=== PATIENT | male | born 1950 | race Caucasian/White ===

== ENCOUNTER → 2017-09-18 | Outpatient (CLI) | payer BC | LOC: M RAD 07:38 | DX: I70.213 Atherosclerosis of native arteries of extremities with intermittent claudication, bilateral legs (principal) | CPT/HCPCS: 93925 ==

== ENCOUNTER → 2017-10-03 | Outpatient (REF) | payer BC | LOC: M LABDRAW1 11:01 | DX: Z51.81 Encounter for therapeutic drug level monitoring (principal); Z79.891 Long term (current) use of opiate analgesic | CPT/HCPCS: 80307 ==

== ENCOUNTER → 2017-10-26 | Outpatient (CLI) | payer BC | LOC: M PLARAD 09:43 | DX: M51.36 Other intervertebral disc degeneration, lumbar region (principal) | CPT/HCPCS: 72148 ==

== ENCOUNTER → 2018-03-01 | Outpatient (CLI) | payer BC, MEDICARE ==
[~2018-03-01] MED LIST: PROHANCE 279.3MG/ML 15ML VIAL (A9576) As Ordered
== END ==
LOC: M RAD 18:10
DX: M47.26 Other spondylosis with radiculopathy, lumbar region (principal)
CPT/HCPCS: A9576

== ENCOUNTER 2018-04-04 10:05 | Emergency (ER) | payer BC ==
[2018-04-04] MEDS: METOPROLOL 5 MG/5 ML VIAL IV ×3 (11:12→11:28)
[2018-04-04 11:14] LABS: BASO % 0.4 % (0.0-1.0); EOS # 0.1 10^3/uL (0.0-0.50); EOS % 0.9 % (0.0-3.0); HEMATOCRIT 39.1 % (42.0-52.0); IMMATURE GRANULOCYTE % 0.3 % (0-3.0); LYMPH # 1.2 10^3/uL (1.5-4.5); LYMPH % 17.5 % (24.0-44.0); MEAN CORPUSCULAR HEMOGLOBIN 31.5 pg (27.0-33.0); MEAN CORPUSCULAR HGB CONC 33.2 g/dl (32.0-36.5); MEAN CORPUSCULAR VOLUME 94.7 fl (80.0-96.0); MONO # 0.8 10^3/uL (0.0-0.8); MONO % 11.1 % (0.0-5.0); NEUTROPHILS # 4.9 10^3/uL (1.8-7.7); NEUTROPHILS % 69.8 % (36.0-66.0); PLATELET COUNT, AUTOMATED 210 10^3/uL (150-450); RED BLOOD COUNT 4.13 10^6/uL (4.30-6.10); RED CELL DISTRIBUTION WIDTH 14.1 % (11.5-14.5)
[2018-04-04 11:31] LABS: INR 1.15; PROTHROMBIN TIME 14.9 SECONDS (12.1-14.4)
[2018-04-04 12:03] LABS: CK-MB VALUE MASS 1.3 NG/ML (<3.6); NT-PRO BNP 489 PG/ML (<125); THYROID STIMULATING HORMONE 0.745 uIU/ML (0.358-3.740); TROPONIN I < 0.02 NG/ML (< 0.10)
[2018-04-04 12:09] LABS: ANION GAP 8 MEQ/L (8-16); BLOOD UREA NITROGEN 20 MG/DL (7-18); CARBON DIOXIDE LEVEL 26 MEQ/L (21-32); CHLORIDE LEVEL 110 MEQ/L (98-107); CREATININE FOR GFR 0.64 MG/DL (0.70-1.30); GLOMERULAR FILTRATION RATE > 60.0 (>49); GLUCOSE, FASTING 122 MG/DL (70-100); POTASSIUM SERUM 3.9 MEQ/L (3.5-5.1); SODIUM LEVEL 144 MEQ/L (136-145)
[2018-04-04 12:10] LABS: ALBUMIN 3.5 GM/DL (3.2-5.2); ALBUMIN/GLOBULIN RATIO 1.13 (1.00-1.93); ALKALINE PHOSPHATASE 75 U/L (45-117); ALT/SGPT 20 U/L (12-78); AST/SGOT 14 U/L (7-37); BILIRUBIN,DIRECT 0.2 MG/DL (0.0-0.2); BILIRUBIN,TOTAL 0.9 MG/DL (0.2-1.0); CALCIUM LEVEL 8.8 MG/DL (8.8-10.2); CPK CREATINE PHOSPHOKINASE 61 U/L (39-308); MAGNESIUM LEVEL 1.9 MG/DL (1.8-2.4); MB/CK RELATIVE INDEX 2.13 (< OR =4); TOTAL PROTEIN 6.6 GM/DL (6.4-8.2)
[2018-04-04 12:11] LABS: FREE T4 0.95 NG/DL (0.76-1.46)
[2018-04-04] MEDS: AMIODARONE HCL 150 MG in APPROPRIATE DILUENT 1 EA IV (12:22)
== END 2018-04-04 14:26 | disposition home or self-care (01) ==
LOC: M ED 10:05
DX: I48.91 Unspecified atrial fibrillation (principal)
CPT/HCPCS: 71045

== ENCOUNTER 2018-08-14 05:35 | Emergency (ER) | payer BC ==
[~2018-08-14] VITALS: Ht 170.2 cm; Wt 79.5 kg
[~2018-08-14 05:35] MED LIST changes: +/PANT40TA OR; +/WARF25TA OR; +ACET65TA OR; +AMLO10TA OR; +AMLO5TAB6; +APRESOLINE PO; +ASPI81TA83 OR; +ASPI81TA83 PO; +ATEN50TA2 PO; +ATOR80TA59 PO; +BENI20TA11 OR; +BENI20TA11 PO; +CALCTAB22 PO; +CARV12.5; +CATA0.2T OR; +CRES40TA PO; +DIGO0.126 OR; +DOC Q LACE PO; +ELIQ5TAB; +FOLI1TAB OR; +FOLI1TAB PO; +GABA-845; +HYDR200T3; +HYDR25TA6 PO; +LOPR50TA OR; +LOSA100T50; +MAALSUS OR; +METH2.5T PO; +METH2.5T48; +METOPROLOL PO; +MULTCAP PO; +NEXI40CA PO; +NITROSTAT PO; +OSCAL PO; +OXAZ30CA OR; +OXYC10TA97 OR; +OYSCO; +PERC7.5T8 OR; +PRADAXA; +PRED10TA2 PO; +PRED5TA PO; -PROHANCE 279.3MG/ML 15ML VIAL (A9576) As Ordered; +TYLETAB14 PO; +VITAMIN B COMPLE1 PO; +VITAMIN B COMPLEX WI OR; +VITAMIN D PO; +pradaxa
[2018-08-14 06:17] LABS: BASO % 0.5 % (0.0-1.0); EOS # 0.2 10^3/uL (0.0-0.50); EOS % 2.8 % (0.0-3.0); HEMATOCRIT 36.8 % (42.0-52.0); LYMPH # 1.6 10^3/uL (1.5-4.5); LYMPH % 28.8 % (24.0-44.0); MEAN CORPUSCULAR HEMOGLOBIN 30.9 pg (27.0-33.0); MEAN CORPUSCULAR HGB CONC 32.6 g/dl (32.0-36.5); MEAN CORPUSCULAR VOLUME 94.8 fl (80.0-96.0); MONO # 0.6 10^3/uL (0.0-0.8); MONO % 10.1 % (0.0-5.0); NEUTROPHILS # 3.2 10^3/uL (1.8-7.7); NEUTROPHILS % 57.4 % (36.0-66.0); PLATELET COUNT, AUTOMATED 303 10^3/uL (150-450); RED BLOOD COUNT 3.88 10^6/uL (4.30-6.10); WHITE BLOOD COUNT 5.7 10^3/uL (4.0-10.0)
[2018-08-14 06:41] LABS: BLOOD UREA NITROGEN 23 MG/DL (7-18); CALCIUM LEVEL 8.6 MG/DL (8.8-10.2); CARBON DIOXIDE LEVEL 22 MEQ/L (21-32); CHLORIDE LEVEL 108 MEQ/L (98-107); CPK CREATINE PHOSPHOKINASE 138 U/L (39-308); CREATININE FOR GFR 1.27 MG/DL (0.70-1.30); GLUCOSE, FASTING 102 MG/DL (70-100); MB/CK RELATIVE INDEX 1.01 (< OR =4); POTASSIUM SERUM 5.2 MEQ/L (3.5-5.1); SODIUM LEVEL 140 MEQ/L (136-145); TROPONIN I < 0.02 NG/ML (< 0.10)
[2018-08-14] MEDS ORDERED: amLODIPine 5 MG TAB PO ONE (07:45)
[2018-08-14] MEDS ORDERED: LOSARTAN 50 MG TAB PO ONE (07:45)
[2018-08-14] MEDS ORDERED: CARVedilol 12.5 MG TAB PO ONE (07:45)
[2018-08-14] MEDS ORDERED: ASPIRIN 81 MG CHEW TABLET PO ONE (07:45)
--- NOTE | 2018-08-14 07:59 | REP ---
Portable chest x-ray: Single view. History: Chest pain. Comparison study: April 04, 2018. Findings: EKG monitoring electrodes overlie the chest. The lungs are symmetrically aerated and clear. Pleural angles are sharp. Cardiomediastinal silhouette is unremarkable. No significant bony abnormality is seen. Impression: No active disease. Electronically Signed by Ashok Bundy MD 08/14/2018 07:50 A
[2018-08-14 08:09] VITALS: BP 127/78
[2018-08-14] MEDS ORDERED: ASPI81TA85 PO (08:22)
[2018-08-14 13:00] LABS: CPK CREATINE PHOSPHOKINASE 44 U/L (39-308); TROPONIN I < 0.02 NG/ML (< 0.10)
[2018-08-14 13:15] VITALS: BP 130/68
[2018-08-14] MEDS ORDERED: PEPC1TAB5 PO (13:16)
--- NOTE | 2018-08-14 20:17 | ECGEPIP ---
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
--- NOTE | 2018-08-14 20:21 | ECGEPIP ---
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
== END 2018-08-14 13:28 | disposition home or self-care (01) ==
LOC: M ED 05:35
DX: R07.89 Other chest pain (principal); M79.602 Pain in left arm; I48.91 Unspecified atrial fibrillation; I10 Essential (primary) hypertension; E78.5 Hyperlipidemia, unspecified; K21.9 Gastro-esophageal reflux disease without esophagitis; M35.3 Polymyalgia rheumatica; G47.30 Sleep apnea, unspecified; Z88.7 Allergy status to serum and vaccine; Z91.040 Latex allergy status; Z91.018 Allergy to other foods; Z79.899 Other long term (current) drug therapy; Z79.01 Long term (current) use of anticoagulants; Z79.82 Long term (current) use of aspirin

== ENCOUNTER → 2019-04-21 | Outpatient (CLI) | payer BC ==
[~2019-04-21] MED LIST changes: -/PANT40TA OR; -/WARF25TA OR; +ASPI81TA85 PO; +COUM1TAB18 OR; +PEPC1TAB5 PO; +PROT1TAB2 OR
== END ==
LOC: M LAB 07:07
PROVIDERS: ATTEND Physical Medicine & Rehabilitation
DX: Z01.818 Encounter for other preprocedural examination (principal)

== ENCOUNTER 2019-05-05 12:18 | Emergency (ER) | payer BC ==
[~2019-05-05] VITALS: Ht 170.2 cm; Wt 73.6 kg
[~2019-05-05 12:18] MED LIST changes: -AMLO5TAB6; +AMLO5TAB6 PO; -CARV12.5; +CARV12.5 PO; -ELIQ5TAB; +ELIQ5TAB PO; -LOSA100T50; +LOSA100T50 PO; -METH2.5T48; +METH2.5T48 PO
[2019-05-05] MEDS ORDERED: CLOP75TA2 PO (12:43)
[2019-05-05] MEDS ORDERED: VALA1TAB2 PO (12:43)
[2019-05-05] MEDS ORDERED: XIDRA (12:43)
[2019-05-05] MEDS ORDERED: DRON40TA PO (12:43)
[2019-05-05] MEDS ORDERED: PRED20TA PO (12:43)
[2019-05-05 14:13] LABS: BASO % 0.1 % (0.0-1.0); EOS # 0.1 10^3/uL (0.0-0.5); EOS % 0.9 % (0.0-3.0); HEMATOCRIT 35.1 % (42.0-52.0); HEMOGLOBIN 11.7 g/dl (13.5-17.5); LYMPH # 1.9 10^3/uL (1.5-5.0); LYMPH % 26.9 % (24.0-44.0); MEAN CORPUSCULAR HEMOGLOBIN 30.8 pg (27.0-33.0); MEAN CORPUSCULAR HGB CONC 33.3 g/dl (32.0-36.5); MEAN CORPUSCULAR VOLUME 92.4 fl (80.0-96.0); MONO # 0.5 10^3/uL (0.0-0.8); MONO % 7.7 % (0.0-5.0); NEUTROPHILS # 4.4 10^3/uL (1.5-8.5); PLATELET COUNT, AUTOMATED 224 10^3/uL (150-450); WHITE BLOOD COUNT 6.9 10^3/uL (4.0-10.0)
[2019-05-05 14:38] LABS: ALBUMIN 3.2 GM/DL (3.2-5.2); ALT/SGPT 17 U/L (12-78); BILIRUBIN,DIRECT 0.1 MG/DL (0.0-0.2); BILIRUBIN,TOTAL 0.7 MG/DL (0.2-1.0); BLOOD UREA NITROGEN 20 MG/DL (7-18); CALCIUM LEVEL 8.5 MG/DL (8.8-10.2); CARBON DIOXIDE LEVEL 26 MEQ/L (21-32); CHLORIDE LEVEL 107 MEQ/L (98-107); CREATININE FOR GFR 0.64 MG/DL (0.70-1.30); GLOMERULAR FILTRATION RATE > 60.0 (>49); GLUCOSE, FASTING 96 MG/DL (70-100); LIPASE 190 U/L (73-393); POTASSIUM SERUM 3.8 MEQ/L (3.5-5.1); SODIUM LEVEL 140 MEQ/L (136-145); TOTAL PROTEIN 6.2 GM/DL (6.4-8.2)
[2019-05-05] MEDS ORDERED: NS 1,000 ML IV SCH (14:58)
[2019-05-05] MEDS ORDERED: MORPHINE 4 MG/ML 1ML VIAL/SYRINGE (J2270) IV ONE ×2 (15:00→17:45)
[2019-05-05] MEDS: GASTROGRAFIN SOLUTION 30ML PO SCH ×2 (15:34→16:07)
[2019-05-05] MEDS ORDERED: ISOVUE-370 76% 100ML VIAL (Q9967) As Ordered ONE (17:23)
--- NOTE | 2019-05-05 18:16 | REP ---
SCROTAL ULTRASOUND: Real-time sonographic evaluation of the scrotum and contents are performed. Testicles are normal in size with no torsion. Right testicle measures 4.8 x 2.7 x 3.1 cm and left testicle 5.0 x 2.3 x 2.9 cm. There is a small complex cyst in the right testicle 3 mm in diameter. There is a cyst in the right epididymis 2 mm in diameter. Right inguinal hernia is present with mesenteric fat in the right inguinal canal. Multiple cysts are seen in the left epididymis. The largest 1 cm in maximum diameter. There are a few scattered tiny calcifications in the testicles. There are small bilateral hydroceles. IMPRESSION: No testicular torsion. Complex cyst right testicle measures 3 mm. There are small cysts in each epididymis and small hydroceles. Right inguinal hernia containing fat. Electronically Signed by Yonatan Larson MD 05/06/2019 10:04 A
--- NOTE | 2019-05-05 18:24 | REPVR ---
PROCEDURE INFORMATION: Exam: CT Abdomen and Pelvis With Contrast Exam date and time: 05/05/2019 5:28 PM Clinical history: 69 years old, male; Pain and condition or disease; Complications not specified; Other: Right groin hernia; Abdominal pain; Localized; Lower; Additional info: R groin hernia now bilat low abd pain TECHNIQUE: Imaging protocol: Computed tomography of the abdomen and pelvis with intravenous contrast. Oral contrast was administered. Radiation optimization: All CT scans at this facility use at least one of these dose optimization techniques: automated exposure control; mA and/or kV adjustment per patient size (includes targeted exams where dose is matched to clinical indication); or iterative reconstruction. Contrast material: ISOVUE 370; Contrast volume: 100 ml; Contrast route: IV; COMPARISON: CT ABD PELVIS WITH CONTRAST 05/30/2014 5:57 PM FINDINGS: Lungs: Mild consolidation in the left lower lobe. Mild left lower lobe bronchial wall thickening. Liver: Stable 3 mm right hepatic lobe hypodensity. This is too small to definitively characterize, but likely represents a cyst. Gallbladder and bile ducts: Normal. No calcified stones. No ductal dilation. Pancreas: Normal. No ductal dilation. Spleen: Calcified splenic granulomas. Adrenals: Normal. No mass. Kidneys and ureters: Duplication of the right renal artery. Stomach and bowel: No bowel obstruction. Appendix: No evidence of appendicitis. Intraperitoneal space: Unremarkable. No free air. No significant fluid collection. Vasculature: Moderate atherosclerotic changes. Incidental circumaortic left renal vein, congenital variant. Coronary artery calcifications. Lymph nodes: Unremarkable. No enlarged lymph nodes. Bladder: Unremarkable as visualized. Reproductive: Unremarkable as visualized. Bones/joints: Degenerative change of the spine. Mild left sacroiliac joint DJD. Mild bilateral hip joint DJD. Mild degenerative change of the pubic symphysis. Soft tissues: Small fat-containing indirect right inguinal hernia. IMPRESSION: 1. Mild left lower lobe bronchopneumonia. 2. Small fat-containing indirect right inguinal hernia. COMMENT: Consistent with the [employer]'s Incidental Findings Committee Report (J Am Missael Radiol 2010): Unless the patient's specific circumstances suggest otherwise, any liver lesion 0.5 cm or less, any cystic kidney lesion less than 1.0 cm, and/or any adrenal lesion 1.0 cm or less not otherwise characterized in this report as possessing suspicious or indeterminate imaging features is/are highly likely to be benign and do not require follow-up imaging or biopsy. Electronically signed by: Azalea Erickson On 05/05/2019 18:24:23 PM
[2019-05-05] MEDS ORDERED: AZIT-12 PO (19:29)
[2019-05-05] MEDS ORDERED: AZITHROMYCIN 250 MG TAB PO ONE (19:30)
[2019-05-05] MEDS ORDERED: ROBI1LIQ9 PO (19:30)
[2019-05-05] MEDS ORDERED: CARVedilol 12.5 MG TAB PO ONE (19:30)
[2019-05-05] MEDS ORDERED: ACETAMINOPHEN TAB 650MG DOSE (2X325MG) PO ONE (19:30)
[2019-05-05 19:31] VITALS: BP 158/73
[2019-05-05 19:40] VITALS: BP 158/73
--- NOTE | 2019-05-07 10:22 | ED PDOC ---
Post-Departure Follow-Up dr jorgensen faxed formal report of scrotal us for fu Akash Worley MD May 07, 2019 10:22
== END 2019-05-05 19:52 | disposition home or self-care (01) ==
LOC: M ED 12:18
DX: J18.0 Bronchopneumonia, unspecified organism (principal); K40.90 Unilateral inguinal hernia, without obstruction or gangrene, not specified as recurrent; N44.2 Benign cyst of testis; N43.3 Hydrocele, unspecified; N50.3 Cyst of epididymis; G47.30 Sleep apnea, unspecified; K21.9 Gastro-esophageal reflux disease without esophagitis; M54.89 Other dorsalgia; F41.9 Anxiety disorder, unspecified; Z88.7 Allergy status to serum and vaccine; Z91.040 Latex allergy status; Z91.018 Allergy to other foods; Z79.899 Other long term (current) drug therapy
CPT/HCPCS: 74177; 76870; 80048; 80076; 83690; 85025; 93041; 93976; 96374; 96376; 99285; J2270; Q9963; Q9967

== ENCOUNTER → 2020-01-05 | Outpatient (CLI) | payer BC ==
[~2020-01-05] MED LIST changes: +AUGM875T28 PO; +AZIT-12 PO; +CLOP75TA2 PO; +DRON40TA PO; +ENOX80IN3; +FOLI1TAB11 PO; +NORC1TAB7 PO; +PRED1TABL PO; +PRED20TA PO; +ROBI1LIQ9 PO; +VALA1TAB5 PO; +XIDRA
--- NOTE | 2020-01-05 10:44 | REP ---
Clinical: Right hip pain. Recent fall. Technique: Neutral and frog lateral views of the right hip. Findings: Generalized age-related changes are appreciated. No acute fracture or dislocation. Surrounding soft tissues grossly unremarkable. Peripheral vascular disease noted. Impression: Age-related degenerative changes. No acute fracture or dislocation. Electronically Signed by Bandar Echeverria MD 01/05/2020 10:35 A
== END ==
LOC: M WUC 10:16
PROVIDERS: ATTEND Physician Assistant
DX: M25.551 Pain in right hip (principal); M18.11 Unilateral primary osteoarthritis of first carpometacarpal joint, right hand

== ENCOUNTER → 2020-04-18 | Outpatient (CLI) | payer BC ==
[~2020-04-18] MED LIST changes: +AMLO1TAB24 PO; -AMLO5TAB6 PO; -ASPI81TA85 PO; +ASPI81TA86 PO
== END ==
LOC: M LABSMTC 09:22
PROVIDERS: ATTEND Physical Medicine & Rehabilitation
DX: Z01.812 Encounter for preprocedural laboratory examination (principal); Z20.828 Contact with and (suspected) exposure to other viral communicable diseases

== ENCOUNTER → 2020-04-23 | Outpatient (CLI) | payer BC ==
[2020-04-23 07:07] LABS: INR 1.01; PROTHROMBIN TIME 13.5 SECONDS (11.8-14.0)
[2020-04-23 07:08] LABS: PARTIAL THROMBOPLASTIN TIME 40.4 SECONDS (25.0-38.4)
== END ==
LOC: M LAB 06:06
PROVIDERS: ATTEND Physical Medicine & Rehabilitation
DX: Z01.812 Encounter for preprocedural laboratory examination (principal)

== ENCOUNTER → 2020-08-04 | Outpatient (CLI) | payer BC | LOC: M LABSMTC 10:34 | PROVIDERS: ATTEND Physical Medicine & Rehabilitation | DX: Z01.812 Encounter for preprocedural laboratory examination (principal); Z20.828 Contact with and (suspected) exposure to other viral communicable diseases ==

== ENCOUNTER → 2020-08-04 | Outpatient (CLI) | payer BC, OTHER | LOC: M LABSMTC 12:15 | PROVIDERS: ATTEND Physical Medicine & Rehabilitation | DX: Z11.59 Encounter for screening for other viral diseases (principal) ==

== ENCOUNTER → 2020-09-07 | Outpatient (REF) | payer BC | LOC: M LAB REF 17:15 | PROVIDERS: ATTEND Nurse Practitioner Family | DX: Z53.9 Procedure and treatment not carried out, unspecified reason (principal); R30.0 Dysuria ==

== ENCOUNTER → 2021-03-21 | Outpatient (CLI) | payer BC ==
[~2021-03-21] MED LIST changes: +DRON400T PO; -DRON40TA PO; +GABA-283; -GABA-845
[2021-03-21 08:25] LABS: PLATELET COUNT, AUTOMATED 306 10^3/uL (150-450)
[2021-03-21 08:36] LABS: INR 0.99; PROTHROMBIN TIME 13.5 SECONDS (12.7-14.5)
[2021-03-21 09:08] LABS: COLLAGEN EPINEPHRINE 264 SECONDS (74-162)
[2021-03-21 09:41] LABS: COLLAGEN ADP 152 SECONDS (56-103)
== END ==
LOC: M LAB 07:17
PROVIDERS: ATTEND Physician Assistant
DX: M47.817 Spondylosis without myelopathy or radiculopathy, lumbosacral region (principal)

== ENCOUNTER → 2021-03-21 | Outpatient (CLI) | payer BC ==
[~2021-03-21] MED LIST changes: +LOSA100T45 PO; -LOSA100T50 PO
[2021-03-21 08:45] LABS: BLOOD UREA NITROGEN 14 MG/DL (7-18); CREATININE FOR GFR 0.66 MG/DL (0.70-1.30); GLOMERULAR FILTRATION RATE > 60.0 (>42)
== END ==
LOC: M LAB 07:20
PROVIDERS: ATTEND Nurse Practitioner Family
DX: Z01.812 Encounter for preprocedural laboratory examination (principal); Z79.899 Other long term (current) drug therapy

== ENCOUNTER → 2021-03-28 | Outpatient (CLI) | payer BC ==
[~2021-03-28] MED LIST changes: -LOSA100T45 PO; +LOSA100T50 PO
[2021-03-28 08:02] LABS: PLATELET COUNT, AUTOMATED 277 10^3/uL (150-450)
[2021-03-28 08:15] LABS: INR 1.01; PROTHROMBIN TIME 13.7 SECONDS (12.7-14.5)
[2021-03-28 08:16] LABS: PARTIAL THROMBOPLASTIN TIME 50.1 SECONDS (25.9-37.0)
== END ==
LOC: M LAB 07:11
PROVIDERS: ATTEND Physical Medicine & Rehabilitation
DX: Z01.812 Encounter for preprocedural laboratory examination (principal)

== ENCOUNTER → 2021-05-09 | Outpatient (CLI) | payer BC ==
[2021-05-09 10:23] LABS: COLLAGEN EPINEPHRINE 114 SECONDS (74-162)
== END ==
LOC: M LAB 09:45
PROVIDERS: ATTEND Physical Medicine & Rehabilitation
DX: Z01.812 Encounter for preprocedural laboratory examination (principal); M47.817 Spondylosis without myelopathy or radiculopathy, lumbosacral region

== ENCOUNTER 2021-06-18 19:56 | Emergency (ER) | payer BC ==
[~2021-06-18] VITALS: Ht 170.2 cm; Wt 74.3 kg
[2021-06-18 20:54] LABS: BASO % 0.3 % (0.0-1.0); EOS # 0.1 10^3/uL (0.0-0.5); EOS % 1.6 % (0.0-3.0); HEMATOCRIT 39.1 % (42.0-52.0); HEMOGLOBIN 13.1 g/dl (13.5-17.5); LYMPH # 1.6 10^3/uL (1.5-5.0); LYMPH % 25.9 % (24.0-44.0); MEAN CORPUSCULAR HEMOGLOBIN 31.4 pg (27.0-33.0); MEAN CORPUSCULAR HGB CONC 33.5 g/dl (32.0-36.5); MEAN CORPUSCULAR VOLUME 93.8 fl (80.0-96.0); MONO # 0.8 10^3/uL (0.0-0.8); NEUTROPHILS # 3.8 10^3/uL (1.5-8.5); PLATELET COUNT, AUTOMATED 295 10^3/uL (150-450); RED BLOOD COUNT 4.17 10^6/uL (4.30-6.10); WHITE BLOOD COUNT 6.3 10^3/uL (4.0-10.0)
[2021-06-18 21:23] LABS: BLOOD UREA NITROGEN 15 MG/DL (7-18); CALCIUM LEVEL 9.5 MG/DL (8.8-10.2); CARBON DIOXIDE LEVEL 24 MEQ/L (21-32); CHLORIDE LEVEL 107 MEQ/L (98-107); CK-MB VALUE MASS < 1.0 NG/ML (<3.6); CPK CREATINE PHOSPHOKINASE 44 U/L (39-308); CREATININE FOR GFR 0.87 MG/DL (0.70-1.30); GLOMERULAR FILTRATION RATE > 60.0 (>42); GLUCOSE, FASTING 119 MG/DL (70-100); MB/CK RELATIVE INDEX 2.27 (< OR =4); POTASSIUM SERUM 3.9 MEQ/L (3.5-5.1); SODIUM LEVEL 141 MEQ/L (136-145); TROPONIN I < 0.02 NG/ML (< 0.10)
[2021-06-18] MEDS ORDERED: ASPIRIN 325 MG TAB PO ONE (21:25)
[2021-06-18] MEDS: NITROGLYCERIN 0.4 MG SUBL TABLET SL PRN ×2 (21:43→21:52)
[2021-06-18 21:52] VITALS: BP 173/93
[2021-06-18] MEDS ORDERED: GI COCKTAIL 50ML BTL(HYOSCYAMINE/MAALOX/LIDOCAINE VISCOUS)(1:3:1) PO ONE (22:25)
--- NOTE | 2021-06-18 22:40 | REPVR ---
PROCEDURE INFORMATION: Exam: XR Chest Exam date and time: 06/18/2021 8:09 PM Age: 71 years old Clinical indication: Pain; On breathing; Additional info: Chest pain TECHNIQUE: Imaging protocol: XR of the chest. Views: 1 view. COMPARISON: CR PORTABLE CHEST X-RAY 04/04/2018 10:34 AM FINDINGS: Lungs: Unremarkable. No consolidation. No pulmonary edema. Pleural spaces: Unremarkable. No pleural effusion. No pneumothorax. Heart/Mediastinum: Unremarkable. No cardiomegaly. Vasculature: There are atherosclerotic calcifications of the aortic arch. 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 The humeral heads are high riding, indicating chronic bilateral full-thickness rotator cuff tears. IMPRESSION: 1. No acute findings. 2. High-riding humeral heads, indicating chronic bilateral full-thickness rotator cuff tears. Electronically signed by: Zachariah Saucedo On 06/18/2021 22:39:36 PM
--- NOTE | 2021-06-18 22:42 | REPVR ---
PROCEDURE INFORMATION: Exam: CT Head Without Contrast Exam date and time: 06/18/2021 9:26 PM Age: 71 years old Clinical indication: Hypertensive emergency TECHNIQUE: Imaging protocol: Computed tomography of the head without contrast. Radiation optimization: All CT scans at this facility use at least one of these dose optimization techniques: automated exposure control; mA and/or kV adjustment per patient size (includes targeted exams where dose is matched to clinical indication); or iterative reconstruction. COMPARISON: No relevant prior studies available. FINDINGS: Brain: There is no CT evidence for an acute large vessel territorial infarct. No acute intracranial hemorrhage is seen. No mass, mass effect, midline shift, or herniation is noted. There are mild non-specific foci of low attenuation in the periventricular white matter, which are likely the sequela of chronic small vessel ischemic injury. Cerebral ventricles: The ventricles are mildly dilated in proportion to the sulci, which is compatible with mild generalized cerebral volume loss. Paranasal sinuses: There is mild opacification of the left ethmoid sinus. No air-fluid levels are seen in the sinuses. The sinuses were not fully imaged. Mastoid air cells: The imaged portions of the mastoid air cells are well aerated. Bones/joints: The skull is intact. No suspicious osteolytic or osteoblastic lesion. Soft tissues: Unremarkable. IMPRESSION: 1. No acute intracranial abnormality. 2. Mild cerebral atrophy and chronic microangiopathic changes. Electronically signed by: Zachariah Saucedo On 06/18/2021 22:41:58 PM
[2021-06-18 23:14] LABS: APPEARANCE, URINE CLEAR (CLEAR); BACTERIA, URINE AUTO NEGATIVE (NEGATIVE); BILIRUBIN, URINE AUTO NEGATIVE (NEGATIVE); BLOOD, URINE BLOOD NEGATIVE (NEGATIVE); COLOR, URINE STRAW (YELLOW); GLUCOSE, URINE (UA) AUTO NEGATIVE (NEGATIVE); KETONE, URINE AUTO NEGATIVE (NEGATIVE); LEUKOCYTE ESTERASE, URINE AUTO NEGATIVE (NEGATIVE); NITRITE, URINE AUTO NEGATIVE (NEGATIVE); PROTEIN, URINE AUTO NEGATIVE (NEGATIVE); RBC, URINE AUTO 0 /HPF (0-3); SPECIFIC GRAVITY URINE AUTO 1.011 (1.002-1.035); SQUAMOUS EPITHELIAL CELL UR AU 0 /HPF (0-6); UROBILINOGEN, URINE AUTO 0.2 mg/dL (0.0-2.0); WBC, URINE AUTO 0 /HPF (0-3)
[2021-06-18 23:15] VITALS: BP 161/89
--- NOTE | 2021-06-19 05:50 | ECGEPIP ---
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
--- NOTE | 2021-06-22 09:49 | ED PDOC ---
Post-Departure Follow-Up dr jorgensen faxed formal report of cxr for fu Akash Worley MD Jun 22, 2021 09:49
== END 2021-06-19 00:14 | disposition home or self-care (01) ==
LOC: M ED 19:56
DX: R07.9 Chest pain, unspecified (principal); R05.9 Cough, unspecified; I10 Essential (primary) hypertension; E78.5 Hyperlipidemia, unspecified; I48.91 Unspecified atrial fibrillation; I25.2 Old myocardial infarction; K21.9 Gastro-esophageal reflux disease without esophagitis; Z79.899 Other long term (current) drug therapy; Z79.01 Long term (current) use of anticoagulants; Z88.7 Allergy status to serum and vaccine; Z91.018 Allergy to other foods

== ENCOUNTER → 2022-01-20 | Outpatient (CLI) | payer BC ==
[~2022-01-20] MED LIST changes: +LOSA100T45 PO; -LOSA100T50 PO
== END ==
LOC: M RAD 10:33
PROVIDERS: ATTEND Internal Medicine Interventional Cardiology
DX: H34.219 Partial retinal artery occlusion, unspecified eye (principal)

== ENCOUNTER → 2023-01-04 | Outpatient (CLI) | payer BC ==
[~2023-01-04] MED LIST changes: -LOSA100T45 PO; +LOSA100T46 PO
== END ==
LOC: M RAD 16:18
PROVIDERS: ATTEND Registered Nurse
DX: H34.231 Retinal artery branch occlusion, right eye (principal)

== ENCOUNTER → 2023-03-06 | Outpatient (CLI) | payer BC ==
[~2023-03-06] MED LIST changes: -HYDR200T3; +HYDR200T46
== END ==
LOC: M PLAIMG 08:46
PROVIDERS: ATTEND Nurse Practitioner Family
DX: M54.50 Low back pain, unspecified (principal); M47.816 Spondylosis without myelopathy or radiculopathy, lumbar region

== ENCOUNTER → 2024-01-11 | Outpatient (CLI) | payer BC ==
[~2024-01-11] MED LIST changes: +AMLO2.5T3 PO; +BAYE81TA7 PO; +ERGO500029 PO; -GABA-283; +GABA-284; +NEXI20CA PO; +NITR0.4S14 SL; +REPA140I2 SC; +THERTAB52 PO; +TRAZ-186 PO; +VALA500T5 PO
[2024-01-11 13:02] LABS: BASO % 0.4 % (0.0-1.0); EOS # 0.1 10^3/uL (0.0-0.5); EOS % 0.9 % (0.0-3.0); HEMATOCRIT 39.4 % (42.0-52.0); HEMOGLOBIN 13.2 g/dl (13.5-17.5); LYMPH # 1.6 10^3/uL (1.5-5.0); LYMPH % 21.6 % (24.0-44.0); MEAN CORPUSCULAR HEMOGLOBIN 33.8 pg (27.0-33.0); MEAN CORPUSCULAR HGB CONC 33.5 g/dl (32.0-36.5); MONO # 1.3 10^3/uL (0.0-0.8); MONO % 16.7 % (2.0-8.0); NEUTROPHILS # 4.5 10^3/uL (1.5-8.5); NEUTROPHILS % 60.1 % (36.0-66.0); PLATELET COUNT, AUTOMATED 174 10^3/uL (150-450); WHITE BLOOD COUNT 7.5 10^3/uL (4.0-10.0)
[2024-01-11 13:35] LABS: ALBUMIN 3.4 G/DL (3.2-5.2); ALKALINE PHOSPHATASE 75 U/L (46-116); ALT/SGPT 31 U/L (7.0-40); AST/SGOT 16 U/L (<34); BILIRUBIN,TOTAL 1.1 MG/DL (0.3-1.2); BLOOD UREA NITROGEN 19 MG/DL (9-23); CARBON DIOXIDE LEVEL 28 MMOL/L (20-31); CHLORIDE LEVEL 107 MMOL/L (98-107); CREATININE FOR GFR 0.84 MG/DL (0.70-1.30); GLOMERULAR FILTRATION RATE > 60.0 (>42); GLUCOSE, FASTING 103 MG/DL (74-106); POTASSIUM SERUM 3.8 MMOL/L (3.5-5.1); SODIUM LEVEL 140 MMOL/L (136-145); TOTAL PROTEIN 6.3 G/DL (5.7-8.2)
== END ==
LOC: M PLAIMG 10:18
PROVIDERS: ATTEND Registered Nurse
DX: J20.9 Acute bronchitis, unspecified (principal)

== ENCOUNTER → 2024-02-20 | Outpatient (CLI) | payer BC | LOC: M RAD 09:53 | PROVIDERS: ATTEND Surgery Vascular Surgery | DX: I65.29 Occlusion and stenosis of unspecified carotid artery (principal) ==

== ENCOUNTER 2024-02-21 06:48 | Day surgery (SDC) | payer BC ==
[~2024-02-21] VITALS: Ht 170.2 cm; Wt 87.5 kg
[~2024-02-21 06:48] MED LIST changes: +NS 1,000 ML IV ONE
[2024-02-21] MEDS ORDERED: propofoL 200 MG/20 ML VIAL As Ordered ONE (08:00)
[2024-02-21] MEDS ORDERED: LIDOCAINE 2% 100MG/5ML SDV (FOR ANES.) As Ordered ONE (08:00)
[2024-02-21 08:26] VITALS: TEMP 98
[2024-02-21 08:37] VITALS: BP 127/74; O2SAT 97
== END 2024-02-21 08:43 | disposition home or self-care (01) ==
LOC: M OPP 06:48
PROVIDERS: ATTEND Surgery
DX: Z12.11 Encounter for screening for malignant neoplasm of colon (principal); Z86.010 Personal history of colon polyps; D12.6 Benign neoplasm of colon, unspecified; K57.30 Diverticulosis of large intestine without perforation or abscess without bleeding; I48.91 Unspecified atrial fibrillation; Z95.5 Presence of coronary angioplasty implant and graft; Z86.74 Personal history of sudden cardiac arrest; Z79.01 Long term (current) use of anticoagulants; Z79.2 Long term (current) use of antibiotics; Z79.52 Long term (current) use of systemic steroids; Z79.620 Long term (current) use of immunosuppressive biologic; Z79.631 Long term (current) use of antimetabolite agent; Z79.82 Long term (current) use of aspirin; Z79.899 Other long term (current) drug therapy; Z88.7 Allergy status to serum and vaccine; Z91.018 Allergy to other foods

== ENCOUNTER 2025-04-11 10:09 | Emergency (ER) | payer BC ==
[~2025-04-11] VITALS: Ht 170.2 cm; Wt 85.3 kg
[~2025-04-11 10:09] MED LIST changes: -NS 1,000 ML IV ONE; +PRED-1142 PO; -PRED1TABL PO
[2025-04-11] MEDS ORDERED: ALBU8.5H PO (10:19)
[2025-04-11 11:19] LABS: BASO # 0.0 10^3/uL (0.0-0.2); BASO % 0.2 % (0.0-1.0); EOS # 0.1 10^3/uL (0.0-0.5); EOS % 1.5 % (0.0-3.0); LYMPH # 1.5 10^3/uL (1.5-5.0); LYMPH % 17.2 % (24.0-44.0); MONO # 0.9 10^3/uL (0.0-0.8); MONO % 10.8 % (2.0-8.0); NEUTROPHILS # 6.1 10^3/uL (1.5-8.5); NEUTROPHILS % 70.1 % (36.0-66.0); PLATELET COUNT, AUTOMATED 243 10^3/uL (150-450)
[2025-04-11 11:36] LABS: INR 1.33
[2025-04-11] MEDS ORDERED: ISOVUE-370 76% 100 ML VIAL As Ordered ONE (12:16)
[2025-04-11 12:22] LABS: THYROXINE (T4) 6.6 UG/DL (4.5-10.9)
[2025-04-11 12:34] LABS: ALT/SGPT 30 U/L (7.0-40); AST/SGOT 29 U/L (<34); CALCIUM LEVEL 9.3 MG/DL (8.3-10.6); CARBON DIOXIDE LEVEL 23 MMOL/L (20-31); CHLORIDE LEVEL 109 MMOL/L (98-107); CREATININE FOR GFR 0.78 MG/DL (0.70-1.30); GLOMERULAR FILTRATION RATE > 90.0 (>42); POTASSIUM SERUM 4.2 MMOL/L (3.5-5.1); SODIUM LEVEL 144 MMOL/L (136-145)
[2025-04-11] MEDS ORDERED: GABA-1171 PO (12:38)
[2025-04-11] MEDS ORDERED: LOSA50TA28 PO (12:38)
[2025-04-11] MEDS ORDERED: HOME MED LIST COMPLETE! XX SCH (12:40)
[2025-04-11 12:41] LABS: CK-MB VALUE MASS 1.4 NG/ML (<3.6)
[2025-04-11 12:42] LABS: CPK CREATINE PHOSPHOKINASE 29.0 U/L (46-171); MB/CK RELATIVE INDEX 4.82 (< OR =4)
[2025-04-11 13:01] LABS: CK-MB VALUE MASS 1.3 NG/ML (<3.6)
[2025-04-11 13:03] LABS: CPK CREATINE PHOSPHOKINASE 30 U/L (46-171); MB/CK RELATIVE INDEX 4.33 (< OR =4)
[2025-04-11 14:25] VITALS: BP 166/96
[2025-04-11] MEDS: FUROSEMIDE 20 MG/2 ML VIAL IV ONE (14:25)
[2025-04-11 15:08] VITALS: BP 169/91; TEMP 98.6; O2SAT 97
== END 2025-04-11 15:12 | disposition short-term general hospital (02) ==
LOC: M ED 10:09
DX: I50.21 Acute systolic (congestive) heart failure (principal); I45.81 Long QT syndrome; I48.91 Unspecified atrial fibrillation; I25.119 Atherosclerotic heart disease of native coronary artery with unspecified angina pectoris; I11.0 Hypertensive heart disease with heart failure; E78.00 Pure hypercholesterolemia, unspecified; E78.5 Hyperlipidemia, unspecified; F10.10 Alcohol abuse, uncomplicated; F41.9 Anxiety disorder, unspecified; Z88.7 Allergy status to serum and vaccine; Z91.018 Allergy to other foods; Z79.01 Long term (current) use of anticoagulants; Z79.51 Long term (current) use of inhaled steroids; Z79.899 Other long term (current) drug therapy; Z79.810 Long term (current) use of selective estrogen receptor modulators (SERMs); Z79.52 Long term (current) use of systemic steroids
CPT/HCPCS: 71045; 71275; 80047; 80048; 80076; 82550; 82553; 83880; 84436; 84443; 84484; 85025; 85610; 85730; 87040; 87486; 87581; 87633; 87798; 93005; 93041; 94760; 96374; 99285; J1938; Q9967

== ENCOUNTER → 2025-04-17 | Outpatient (CLI) | payer BC ==
[~2025-04-17] MED LIST changes: +ALBU8.5H PO; +GABA-1171 PO; +LOSA50TA28 PO
== END ==
LOC: M RAD 07:37
PROVIDERS: ATTEND Nurse Practitioner Family
DX: M25.512 Pain in left shoulder (principal); R20.2 Paresthesia of skin; M19.042 Primary osteoarthritis, left hand; M75.101 Unspecified rotator cuff tear or rupture of right shoulder, not specified as traumatic